=== PATIENT | female | born 1985 | race Caucasian/White ===

== ENCOUNTER 2018-09-09 23:38 | Emergency (ER) | payer MEDICAID ==
[~2018-09-09] VITALS: Ht 157.5 cm; Wt 60.0 kg
[2018-09-09] MEDS ORDERED: AMOXI1255L PO (23:52)
[2018-09-09] MEDS ORDERED: ACET-66 PO (23:52)
[2018-09-10] MEDS ORDERED: LORazepam 1 MG TABLET PO ONE
[2018-09-10 00:56] VITALS: BP 135/87
== END 2018-09-10 00:58 | disposition home or self-care (01) ==
LOC: EMS 23:40
DX: K04.7 Periapical abscess without sinus (principal); F41.9 Anxiety disorder, unspecified